=== PATIENT | female | born 1950 | race Two or more races ===

== ENCOUNTER 2020-10-07 03:58 | Emergency (ER) | payer OTHER ==
[~2020-10-07] VITALS: Ht 160 cm; Wt 65.8 kg
[2020-10-07] MEDS ORDERED: HUMIRA(CF)10 MG/0.1 (04:29)
[2020-10-07] MEDS ORDERED: LIPITOR40 M1 (04:29)
[2020-10-07] MEDS ORDERED: COZAAR25 MG (04:29)
[2020-10-07] MEDS ORDERED: PAXIL30 MG (04:30)
[2020-10-07] MEDS ORDERED: LEVOTHYROXINE25 MCG (04:30)
[2020-10-07] MEDS ORDERED: SILENOR6 MG (04:30)
[2020-10-07] MEDS ORDERED: ZOFRAN4 MG PO (07:59)
[2020-10-07] MEDS ORDERED: MECLIZINE HCL25 M1 PO (07:59)
[2020-10-07] MEDS ORDERED: PEPCID40 MG PO ×2 (07:59)
== END 2020-10-07 08:37 | disposition home or self-care (01) ==
LOC: ER 03:58
DX: R42 Dizziness and giddiness (principal)